=== PATIENT | female | born 1985 | race Caucasian/White ===

== ENCOUNTER 2019-10-20 13:07 | Outpatient (CLI) | payer OTHER ==
[~2019-10-20 13:07] MED LIST: IBUP-1222 PO; PREN1TAB10 PO
== END 2019-10-20 23:59 | disposition home or self-care (01) ==
LOC: STAR 13:07
PROVIDERS: ATTEND Obstetrics & Gynecology
DX: Z11.59 Encounter for screening for other viral diseases (principal)
CPT/HCPCS: 36415; 87635

== ENCOUNTER 2019-10-30 05:33 | Inpatient (IN) | payer OTHER ==
[~2019-10-30] VITALS: Ht 175.3 cm; Wt 76.8 kg
[2019-10-30 05:46] VITALS: BP 117/73
[2019-10-30] MEDS ORDERED: D5%-LACTATED RINGERS 1,000 ML IV SCH (05:58)
[2019-10-30] MEDS ORDERED: OXYTOCIN 30U/ 0.9% NaCL 500ML 500 ML IV ONE (05:58)
[2019-10-30] MEDS ORDERED: TERBUTALINE 1 MG/ML, 1ML SQ PRN (06:00)
[2019-10-30] MEDS ORDERED: TERBUTALINE 1 MG/ML, 1ML IVPush PRN (06:00)
[2019-10-30] MEDS ORDERED: FENTANYL PF 100 MCG/2ML IVPush PRN (06:00)
[2019-10-30] MEDS ORDERED: ONDANSETRON 2MG/ML, 2ML IVPush PRN (06:00)
[2019-10-30] MEDS ORDERED: FENTANYL PF 100 MCG/2ML IV PRN (06:00)
[2019-10-30] MEDS ORDERED: LIDOCAINE 1%, 20ML ONE (06:12)
[2019-10-30] MEDS ORDERED: NEWBORN KIT ONE (06:12)
[2019-10-30] MEDS ORDERED: OXYTOCIN 30U/ 0.9% NaCL 500ML 500 ML ONE ×3 (06:12→11:29)
[2019-10-30] MEDS: LACTATED RINGERS 1,000 ML IV SCH ×3 (06:25→10:30)
[2019-10-30 07:16] LABS: BASOPHILS # (AUTO) 0.03 x10^3/uL (0-0.1); BASOPHILS % (AUTO) 0 % (0-1); EOSINOPHILS # (AUTO) 0.19 x10^3/uL (0-0.4); EOSINOPHILS % (AUTO) 2 % (1-7); LYMPHOCYTES # (AUTO) 2.01 x10^3/uL (1-3.4); LYMPHOCYTES % (AUTO) 16 % (22-44); MD NO; MEAN CORPUSCULAR HEMOGLOBIN 30.2 pg (27.0-34.8); MEAN CORPUSCULAR HGB CONC 33.5 g/dL (32.4-35.8); MEAN CORPUSCULAR VOLUME 90.1 fL (80-100); MEAN PLATELET VOLUME 9.4 fL (7.4-10.4); MONOCYTES # (AUTO) 0.43 x10^3/uL (0.2-0.8); MONOCYTES % (AUTO) 3 % (2-9); NEUTROPHILS # (AUTO) 9.84 x10^3/uL (1.8-6.8); NEUTROPHILS % (AUTO) 79 % (42-75); PLATELET COUNT 258 x10^3/uL (130-400); RED BLOOD COUNT 4.21 x10^6/uL (3.82-5.3); RED CELL DISTRIBUTION WIDTH 12.7 % (9.6-15.2)
[2019-10-30] MEDS ORDERED: BUPIVACAINE 0.25% ONE (10:10)
[2019-10-30] MEDS ORDERED: FENTANYL/BUPIV./NS/PF 0 ML EPIDCONT ONE (10:11)
[2019-10-30] MEDS ORDERED: FENTANYL PF 100 MCG/2ML ONE (10:34)
[2019-10-30] MEDS ORDERED: ONDANSETRON 2MG/ML, 2ML ONE (10:34)
[2019-10-30] MEDS: OXYTOCIN 30U/ 0.9% NaCL 500ML 500 ML IV SCH ×2 (11:46→21:44)
[2019-10-30] MEDS ORDERED: SIMETHICONE 80 MG CHEW TAB PO PRN (13:00)
[2019-10-30] MEDS ORDERED: DOCUSATE 100 MG CAPSULE PO PRN (13:00)
[2019-10-30] MEDS ORDERED: OXYcodone/APAP 5/325MG TABLET PO PRN ×2 (13:00)
[2019-10-30] MEDS ORDERED: ACETAMINOPHEN 325 MG TABLET PO PRN ×2 (13:00)
[2019-10-30] MEDS ORDERED: MISOPROSTOL 200 MCG TABLET PR PRN (13:00)
[2019-10-30] MEDS ORDERED: IBUPROFEN 600 MG TABLET ONE (13:02)
[2019-10-30] MEDS: IBUPROFEN 600 MG TABLET PO PRN ×2 (13:07→19:26)
[2019-10-30 13:35] VITALS: BP 105/69
[2019-10-30 16:45] VITALS: BP 98/62
[2019-10-30 19:10] LABS: BASOPHILS # (AUTO) 0.04 x10^3/uL (0-0.1); BASOPHILS % (AUTO) 0 % (0-1); EOSINOPHILS # (AUTO) 0.07 x10^3/uL (0-0.4); EOSINOPHILS % (AUTO) 1 % (1-7); LYMPHOCYTES # (AUTO) 1.83 x10^3/uL (1-3.4); LYMPHOCYTES % (AUTO) 15 % (22-44); MD NO; MEAN CORPUSCULAR HEMOGLOBIN 30.7 pg (27.0-34.8); MEAN CORPUSCULAR HGB CONC 33.8 g/dL (32.4-35.8); MEAN CORPUSCULAR VOLUME 90.9 fL (80-100); MONOCYTES # (AUTO) 0.57 x10^3/uL (0.2-0.8); MONOCYTES % (AUTO) 5 % (2-9); NEUTROPHILS # (AUTO) 9.44 x10^3/uL (1.8-6.8); NEUTROPHILS % (AUTO) 79 % (42-75); PLATELET COUNT 183 x10^3/uL (130-400); RED BLOOD COUNT 3.32 x10^6/uL (3.82-5.3); RED CELL DISTRIBUTION WIDTH 12.4 % (9.6-15.2)
[2019-10-30 20:00] VITALS: BP 97/61
[2019-10-31] VITALS: BP 98/61
[2019-10-31 04:00] VITALS: BP 102/68
[2019-10-31] MEDS: IBUPROFEN 600 MG TABLET PO PRN ×2 (05:11→12:17)
[2019-10-31] MEDS: OXYTOCIN 30U/ 0.9% NaCL 500ML 500 ML IV SCH (07:44)
[2019-10-31] MEDS ORDERED: PRENATAL VIT/IRON/FA 1 EACH TABLET PO SCH (09:00)
[2019-10-31 09:30] VITALS: BP 109/72
[2019-10-31] MEDS ORDERED: IBUP-1223 PO (12:54)
[2019-10-31] MEDS ORDERED: DOCU-131 PO (12:55)
[2019-10-31] MEDS ORDERED: FERR324T5 PO (13:00)
== END 2019-10-31 14:10 | disposition home or self-care (01) | DRG 807 ==
LOC: LDOP 05:33 → LDIP 06:01 → 2NW 13:30
PROVIDERS: ADMIT Obstetrics & Gynecology; ATTEND Obstetrics & Gynecology
PROC: 10E0XZZ Delivery of Products of Conception, External Approach (ICD-10-PCS; principal; 2019-10-30)
PROC: 0KQM0ZZ Repair Perineum Muscle, Open Approach (ICD-10-PCS; 2019-10-30)
PROC: 0UQMXZZ Repair Vulva, External Approach (ICD-10-PCS; 2019-10-30)
DX: O99.354 Diseases of the nervous system complicating childbirth (principal); Z37.0 Single live birth; O70.1 Second degree perineal laceration during delivery; Z3A.40 40 weeks gestation of pregnancy; Z80.1 Family history of malignant neoplasm of trachea, bronchus and lung; Z80.6 Family history of leukemia; G43.909 Migraine, unspecified, not intractable, without status migrainosus
CPT/HCPCS: 36415; 85025; 86592; 86850; 86900; G0378; J2405; J2590; J7120